=== PATIENT | male | born 1985 | race Caucasian/White ===

== ENCOUNTER 2025-07-09 09:10 | Emergency (ER) | payer MEDICAID, OTHER ==
[2025-07-09] MEDS: Ketorolac 30 MG/ML SDV IM ONE (10:29)
== END 2025-07-09 10:59 | disposition home or self-care (01) ==
LOC: JP.ED 09:10
DX: M54.50 Low back pain, unspecified (principal); Z88.2 Allergy status to sulfonamides; X50.0XXA Overexertion from strenuous movement or load, initial encounter; Y99.0 Civilian activity done for income or pay
CPT/HCPCS: 96372; 99283; A9270; J1885